=== PATIENT | male | born 1950 | race Caucasian/White ===

== ENCOUNTER 2016-12-15 14:20 | Inpatient (IN) | payer OTHER, MEDICARE ==
[~2016-12-15] VITALS: Ht 175.3 cm; Wt 85.8 kg
[2016-12-15] MEDS ORDERED: PANTOPRAZOLE SO40 M1 PO (15:13)
[2016-12-15] MEDS ORDERED: TACROLIMUS1 M1 PO (15:13)
[2016-12-15] MEDS ORDERED: CRESTOR10 M1 PO (15:14)
[2016-12-15] MEDS ORDERED: LOSARTAN POTASS50 M1 PO (15:14)
[2016-12-15] MEDS ORDERED: ASPIRIN81 M4 PO (15:15)
[2016-12-15] MEDS ORDERED: CLONAZEPAM0.5 M2 PO (15:15)
[2016-12-15] MEDS ORDERED: DAILY MULTIPLE1 EACH PO (15:16)
[2016-12-15] MEDS ORDERED: FISH OIL 1,0001 EACH PO (15:16)
[2016-12-15] MEDS ORDERED: HYDROXYZINE HCL25 M2 PO (15:18)
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
[2016-12-15 16:22] LABS: ABSOLUTE BASOPHIL COUNT 0 /CUMM (0.0-0.2); ABSOLUTE EOSINOPHIL COUNT 0.1 /CUMM (0.0-0.7); ABSOLUTE GRANULOCYTE CT 4.7 /CUMM (1.4-6.5); ABSOLUTE LYMPH COUNT 1.4 /CUMM (1.2-3.4); ABSOLUTE MONOCYTE COUNT 0.4 /CUMM (0.10-0.60); BASOPHIL % 0.5 % (0.0-2.0); EOSINOPHIL % 1.1 % (0-5); GRANULOCYTE % 70.5 % (42.2-75.2); HEMATOCRIT 40.1 % (42-52); MEAN CORPUSCULAR HGB 31.2 PG (27.0-31.0); MEAN CORPUSCULAR VOLUME 91.9 FL (80.0-94.0); MEAN PLATELET VOLUME 7.6 FL (7.4-10.4); PLATELET COUNT 159 /CUMM (130-400); RED BLOOD CELL CT 4.36 /CUMM (4.70-6.10); WHITE BLOOD CELL COUNT 6.7 /CUMM (4.8-10.8)
--- NOTE | 2016-12-15 18:12 | ED PSYCH CRISIS CONSULTATION ---
See Addendum Crisis Consult Basic Assessment Date of Consult: 12/15/16 Responsible Person/Accompanied By: self Insurance Authorization: Insurance #1: Insurance name: MEDICARE A Phone number: Policy number: [id number] Group number: Authorization number: ED Provider: Patient's ED Provider: CYNTHIA CARD Primary Care Physician: Patient's PCP: NIKOLAS JARAMILLO MD PCP's Chief Complaint: Psychiatric Related Complaint Patient's Quote: "I am very depressed." Present Illness: The pt is a 66 yo male BIBA on a PEER for SI and HI after calling 211 earlier today. The pt reports his only stressor is increasing discord with his of 40 years. The pt reports he cannot tolerate arguments with his anymore and stated I am going to snap so I called 211. The pt stated he planned to "chop up" his today when she returned home from work and put her in a suitcase or in a vann. The pt stated he then planned to hang himself to avoid longterm. The pt stated he does not think he can stop himself from following through on this plan. During this assessment the pt presented alert, tearful, oriented, calm and cooperative. The pts speech was goal directed and the pt made appropriate eye contact. The pt denies AH, VH and paranoia. The pt stated his sleep is increasingly poor, the pt denies any problems with appetite. The pt denies any drug and alcohol use and his toxicology screen is negative. The pt reports 1 past attempt of suicide approximately 13 years ago. The pt stated he hung a rope in his garage but could not follow through with hanging himself due to his children. The pt stated he has 1 past psychiatric hospitalization approximately 4-5 years ago due to depression with SI. The pt reports he saw a psychiatrist several times in approximately 2002 but refused medication due to being afraid of side effects. The pt reports his has a long history of alcoholism in addition to abusing Klonopin and other drugs. The pt stated his argues with him daily and is aggressive and destructive. Crisis spoke by phone with the pts daughter Lucinda Miranda ([phone]). Ms. Miranda reported the pt called her earlier today stating he feels like killing his and then himself. Ms. Miranda stated she is afraid the pt will follow through on harming his and himself. Ms. Miranda stated her parents have a long history of discord centering around the mothers alcoholism. Ms. Miranda stated the stressors at home remain the same due to the pts continuing to refuse rehab. Ms. Miranda stated the pt is pleasant and easy going except her parents are hostile towards each other. While in the ED, after Crisis met with the pt, he was moved from the hallway to a room. The pt began yelling and swearing at staff about being confined. The pt was moved back to the franks and became calm again. The pt reports he is angry his is not forced to enter treatment. Pt's presentation discussed with Dr. Gaytan, plan is for a PEC and inpatient hospitalization. Pt and daughter are in agreement with this plan. Patient's Address: [address] [place] [address] Other Phone Number: Who Do You Live With? Significant Other Family/Informants Interviewed: pt's daughter Allergies - Coded Allergies: No Known Allergies (12/15/16) Current Medications - Scheduled Medications Aspirin (Aspirin*) 81 MG TAB.CHEW 1 TAB PO DAILY HEART HEALTH (Reported) Entered as Reported by STEPH TRAN on 12/15/16 1515 Clonazepam 0.5 MG TABLET 1 TAB PO BID ANXIETY #180 (Reported) Entered as Reported by STEPH TRAN on 12/15/16 1515 Losartan Potassium 50 MG TABLET 1 TAB PO DAILY HEART #30 (Reported) Entered as Reported by STEPH TRAN on 12/15/16 1514 Multivitamin (Daily Multiple Vitamin) 1 EACH TABLET 1 TAB PO DAILY SUPPLEMENT (Reported) Entered as Reported by STEPH TRAN on 12/15/16 1516 Pantoprazole Sodium 40 MG TABLET.DR 1 TAB PO DAILY GI #90 (Reported) Entered as Reported by STEPH TRAN on 12/15/16 1513 Rosuvastatin Calcium (Crestor) 10 MG TABLET 1 TAB PO DAILY CHOLESTEROL #90 ( Reported) Entered as Reported by STEPH TRAN on 12/15/16 1514 Tacrolimus 1 MG CAPSULE 1 CAP PO BID IMMUNE MEDICATION #180 (Reported) Entered as Reported by STEPH TRAN on 12/15/16 1513 Scheduled PRN Medications Hydroxyzine HCl 25 MG TABLET 1 TAB PO BID PRN ITCHING #30 (Reported) Entered as Reported by STEPH TRAN on 12/15/16 1518 Miscellaneous Medications [place]-3 Fatty Acids/Fish Oil (Fish Oil 1,000 MG Capsule) 340 MG-1,000 MG CAPSULE SUPPLEMENT (Reported) Entered as Reported by STEPH TRAN on 12/15/16 1516 Laboratory Results: Laboratory Tests 12/15/16 1606: Anion Gap 11, Estimated GFR > 60, BUN/Creatinine Ratio 32.5 H, Glucose 115 H, Calcium 9.2, Total Bilirubin 1.1, AST 98 H, ALT 85 H, Alkaline Phosphatase 53, Total Protein 7.3, Albumin 4.0, Globulin 3.3, Albumin/Globulin Ratio 1.2, CBC w Diff NO MAN DIFF REQ, RBC 4.36 L, MCV 91.9, MCH 31.2 H, RDW 13.0, MPV 7.6, Gran % 70.5, Lymphocytes % 21.6, Monocytes % 6.3, Eosinophils % 1.1, Basophils % 0.5, Absolute Granulocytes 4.7, Absolute Lymphocytes 1.4, Absolute Monocytes 0.4 , Absolute Eosinophils 0.1, Absolute Basophils 0, PUBS MCHC 34.0, Serum Alcohol < 10.0 12/15/16 1530: Urine Opiates Screen < 100.00, Methadone Screen < 40, Barbiturate Screen < 60, Ur Phencyclidine Scrn < 6.00, Amphetamines Screen < 100, U Benzodiazepines Scrn < 85, Urine Cocaine Screen < 50, Urine Cannabis Screen < 5.00 Past History Past Medical History Cardiovascular: hypertension Gastrointestinal: HEP C Hepatic: LIVER TRANSPLANT Psychiatric: anxiety, depression Endocrine: diabetes Past Surgical History Surgical History: LIVER TRANSPLANT Psychosocial History Strengths/Capabilities: Long work history until liver transplant, supportive relationship with daughter Physical Limitations (Interventions): disability related to liver transplant in 2003 Psychiatric Treatment History Psych Treatment Psychiatric Treatment Yes Inpatient Treatment Yes Outpatient Treatment Yes Location of Treatment inpt- [facility], outpt psychiatrist (pt does not know name) Reason for Treatment depression with SI Dates of Treatment inpt approx 4-5 yrs ago, outpt approx 2002 Response to Treatment limited due to ongoing discord with Diagnosis by History: depression Substance Use/Abuse History Drug Use/Abuse Substances Used/Abused No Substance Abuse Treatment Substance Abuse Treatment Past Substance Abuse [place] No Current Mental Status Mental Status Orientation: Person, Place, Situation Affect: Anxious (labile) Speech: WNL Neuro-vegetative: Sleep Disturbance Appearance Appearance- Dress/Hygiene: appropriate Behaviors Thought Process: WNL Thought Content: WNL Memory: WNL Insight: Poor SI/HI Risk Assessment Past Suicidal Ideation/Attempts Yes Current Suicidal Ideation/Att Yes Past Homicidal Ideation/Att: No Current Homicidal Ideation/Attempts Yes Degree of Intent: Plan, States Intent Danger To: Others, Self Risk Factors: access to lethal means, high anxiety/distress, history of suicide atmpts, SA/MH hospitalized, lack of outcome concern, male, limited support Lethality Ratin PTSD Checklist PTSD Done? patient declined ED Management Sitter: Yes Restraints: No DSM5/PS Stressors/Medical Prob Diagnosis' (DSM 5, Stressors, Medical): F32.9 Unspecified Depressive Disorder Z63.0 Relationship Distress with Spouse Current GAF: 26 Departure Disposition Psych Medical Clearance Date: 12/15/16 Medically Cleared at: 1700 Time Started: 1700 Time Ended: 1730 Psychiatrist Consulted: Dr. Gaytan Date Disposition Established: 12/15/16 Time Disposition Established: 1844 Plan for Disposition - Modality: Inpatient Psychiatry Facility: Bed Search Rationale for Disposition: Pt is a risk to self and others. Type of IP Admission: PEC (Pt is in agreement with inpt.) Referrals NIKOLAS JARAMILLO MD (PCP/Family)
--- NOTE | 2016-12-16 14:43 | ED PSYCHIATRIST/APRN CONSULT ---
Psychiatrist/[employer] ED Consult Assessment and Plan: Pt seen today as f/u. Pt notes that he is very stressed about the situation with as "she is trying to kill herself." He notes worsening depression and anxiety as well as SI or HI one day ago because "there is nothing I can do." Feeling slightly better today though depressed. MSE As stated age, cooperative though guarded, good eye contact, nl r/r/v/p of speech, mood "I'm Ok" affect very tearful, irritable, labile, congruent, appropriate, linear and goal-directed thought process, denies SI or HI currently , denies AVHs, I/J: poor A/P: Pt with hx of MDD who presented with SI and HI to kill one day ago as ongoing issues around substance abuse in the . Given severely of sx and plan to kill , pt would benefit from acute inpatient stablization at this time. On 12/15/2016 Awaiting inpatient psych admission Bed search underway
--- NOTE | 2016-12-16 19:17 | ED PSY CRISIS COLLATERAL NOTE ---
Collateral Note Collateral Note Family/Inform/[facility] Contacts: front office associate spoke to Lucinda Celeste, pt's daughter . Lucinda states her father was admitted twice at [facility] (past 4 years) for suicidal ideations and there are periods in his life where he has been violent and "loses it". According to Lucinda, pt has been saying "wild, irrational and ignorant stuff to my mother". "He told her he wants to kill her". "Yes my father needs to be admitted for inpatient psychiatric treatment". Lucinda is encouraging us to give the pt his anti-rejection medications need because of his liver transplant and his medications for his diabetes,"check blood sugar because when his blood sugar is off he loses it" . Lucinda also confirmed that her mother is an alcoholic and abuses prescription medications. As of 7pm eddi Lucinda had no idea of her mother's whereabout. "I've been calling the house and I can't reach her and don't know where she it at this time".
--- NOTE | 2016-12-17 13:36 | ED PSYCHIATRIST/APRN CONSULT ---
Psychiatrist/[employer] ED Consult Assessment and Plan: Pt seen as f/u today. Pt notes that is getting treatment now. He feels that all problems solved. When noted to pt that he would not be discharged he stated, "If I'm crazy, I'm crazy and there is nothing that you can do. If I want to go kill someone when I leave here, I will!!" Unable to be redirected. Pt adamant that will not relapse but if does, "well...we don't know what will happen then!" MSE As stated age, cooperative though guarded, good eye contact, nl r/r/v/p of speech, mood "I'm fine now" affect very tearful, extremely irritable, labile, congruent, appropriate, linear and goal-directed thought process, denies SI or HI currently, denies AVHs, I/J: poor A/P: Pt with hx of MDD who presented with SI and HI to kill as ongoing issues around substance abuse in the . Although she is now seeking treatment , pt still risk to her and himself as she may relapse. Pt was agitated even considering this possibility. Given severity of sx and plan to kill , pt would benefit from acute inpatient stablization at this time. PEC written Awaiting bed for acute psychiatric stablization
--- NOTE | 2016-12-18 11:52 | IP CRISIS DIAG ASSESS PSYCH ---
Diagnostic Assessment Basic Assessment Insurance Authorization: Insurance #1: Insurance name: MEDICARE A Phone number: Policy number: [id number] Group number: Authorization number: Patient's listed [facility] account was terminated when he was at his last address in [place], [place], per Caity at [facility] advocate unit, [phone]. 12/18/16 1240. Primary Care Physician: Patient's PCP: NIKOLAS JARAMILLO MD PCP's Patient's Quote: "I am very depressed." Present Illness: From the initial Crisis consult of 12/15/16: The pt is a 66 yo male BIBA on a PEER for SI and HI after calling 211 earlier today. The pt reports his only stressor is increasing discord with his of 40 years. The pt reports he cannot tolerate arguments with his anymore and stated I am going to snap so I called 211. The pt stated he planned to "chop up" his today when she returned home from work and put her in a suitcase or in a vann. The pt stated he then planned to hang himself to avoid intermediate. The pt stated he does not think he can stop himself from following through on this plan. During this assessment the pt presented alert, tearful, oriented, calm and cooperative. The pts speech was goal directed and the pt made appropriate eye contact. The pt denies AH, VH and paranoia. The pt stated his sleep is increasingly poor, the pt denies any problems with appetite. The pt denies any drug and alcohol use and his toxicology screen is negative. The pt reports 1 past attempt of suicide approximately 13 years ago. The pt stated he hung a rope in his garage but could not follow through with hanging himself due to his children. The pt stated he has 1 past psychiatric hospitalization approximately 4-5 years ago due to depression with SI. The pt reports he saw a psychiatrist several times in approximately 2002 but refused medication due to being afraid of side effects. The pt reports his has a long history of alcoholism in addition to abusing Klonopin and other drugs. The pt stated his argues with him daily and is aggressive and destructive. Crisis spoke by phone with the pts daughter Lucinda Miranda ([phone]). Ms. Miranda reported the pt called her earlier today stating he feels like killing his and then himself. Ms. Miranda stated she is afraid the pt will follow through on harming his and himself. Ms. Miranda stated her parents have a long history of discord centering around the mothers alcoholism. Ms. Miranda stated the stressors at home remain the same due to the pts continuing to refuse rehab. Ms. Miranda stated the pt is pleasant and easy going except her parents are hostile towards each other. While in the ED, after Crisis met with the pt, he was moved from the hallway to a room. The pt began yelling and swearing at staff about being confined. The pt was moved back to the franks and became calm again. The pt reports he is angry his is not forced to enter treatment. Pt's presentation discussed with Dr. Gaytan, plan is for a PEC and inpatient hospitalization. Pt and daughter are in agreement with this plan. Patient's Address: [address] [place] [address] Other Phone Number: Formerly in [place], [place] until 2 years ago. Who Do You Live With? Spouse Feel Safe Where You Live? Yes Feel Safe in Your Relationship Yes Marital Status: Do You Have Children? Yes Ages? 3 children, 5 grandchildr Primary Language? Chinese Language(s) Spoken At Home: Malian, Chinese Family/Informants Interviewed: pt's daughter (See collateral note from ) Allergies - Coded Allergies: No Known Allergies (12/15/16) Current Medications - Scheduled Medications Aspirin (Aspirin*) 81 MG TAB.CHEW 1 TAB PO DAILY HEART HEALTH (Reported) Entered as Reported by STEPH TRAN on 12/15/16 1515 Clonazepam 0.5 MG TABLET 1 TAB PO BID ANXIETY #180 (Reported) Entered as Reported by STEPH TRAN on 12/15/16 1515 Losartan Potassium 50 MG TABLET 1 TAB PO DAILY HEART #30 (Reported) Entered as Reported by STEPH TRAN on 12/15/16 1514 Multivitamin (Daily Multiple Vitamin) 1 EACH TABLET 1 TAB PO DAILY SUPPLEMENT (Reported) Entered as Reported by STEPH TRAN on 12/15/16 1516 Pantoprazole Sodium 40 MG TABLET.DR 1 TAB PO DAILY GI #90 (Reported) Entered as Reported by STEPH TRAN on 12/15/16 1513 Rosuvastatin Calcium (Crestor) 10 MG TABLET 1 TAB PO DAILY CHOLESTEROL #90 ( Reported) Entered as Reported by STEPH TRAN on 12/15/16 1514 Tacrolimus 1 MG CAPSULE 1 CAP PO BID IMMUNE MEDICATION #180 (Reported) Entered as Reported by STEPH TRAN on 12/15/16 1513 Scheduled PRN Medications Hydroxyzine HCl 25 MG TABLET 1 TAB PO BID PRN ITCHING #30 (Reported) Entered as Reported by STEPH TRAN on 12/15/16 1518 Miscellaneous Medications [place]-3 Fatty Acids/Fish Oil (Fish Oil 1,000 MG Capsule) 340 MG-1,000 MG CAPSULE SUPPLEMENT (Reported) Entered as Reported by STEPH TRAN on 12/15/16 1516 Lab Results: Laboratory Tests 12/15 12/15 1606 1530 Chemistry Sodium (137 - 145 mmol/L) 136 L Potassium (3.5 - 5.1 mmol/L) 4.0 Chloride (98 - 107 mmol/L) 104 Carbon Dioxide (22 - 30 mmol/L) 22 Anion Gap (5 - 16) 11 BUN (9 - 20 mg/dL) 26 H Creatinine (0.7 - 1.2 mg/dL) 0.8 Estimated GFR (>60 ml/min) > 60 BUN/Creatinine Ratio (7 - 25 %) 32.5 H Glucose (65 - 99 mg/dL) 115 H Calcium (8.4 - 10.2 mg/dL) 9.2 Total Bilirubin (0.2 - 1.3 mg/dL) 1.1 AST (17 - 59 U/L) 98 H ALT (21 - 72 U/L) 85 H Alkaline Phosphatase (< 127 U/L) 53 Total Protein (6.3 - 8.2 g/dL) 7.3 Albumin (3.5 - 5.0 g/dL) 4.0 Globulin (1.9 - 4.2 gm/dL) 3.3 Albumin/Globulin Ratio (1.1 - 2.2 %) 1.2 Hematology CBC w Diff NO MAN DIFF REQ WBC (4.8 - 10.8 /CUMM) 6.7 RBC (4.70 - 6.10 /CUMM) 4.36 L Hgb (14.0 - 18.0 G/DL) 13.6 L Hct (42 - 52 %) 40.1 L MCV (80.0 - 94.0 FL) 91.9 MCH (27.0 - 31.0 PG) 31.2 H RDW (11.5 - 14.5 %) 13.0 Plt Count (130 - 400 /CUMM) 159 MPV (7.4 - 10.4 FL) 7.6 Gran % (42.2 - 75.2 %) 70.5 Lymphocytes % (20.5 - 51.1 %) 21.6 Monocytes % (1.7 - 9.3 %) 6.3 Eosinophils % (0 - 5 %) 1.1 Basophils % (0.0 - 2.0 %) 0.5 Absolute Granulocytes (1.4 - 6.5 /CUMM) 4.7 Absolute Lymphocytes (1.2 - 3.4 /CUMM) 1.4 Absolute Monocytes (0.10 - 0.60 /CUMM) 0.4 Absolute Eosinophils (0.0 - 0.7 /CUMM) 0.1 Absolute Basophils (0.0 - 0.2 /CUMM) 0 PUBS MCHC (33.0 - 37.0 G/DL) 34.0 Toxicology Urine Opiates Screen (>2000 NG/ML) < 100.00 Methadone Screen (>300 NG/ML) < 40 Barbiturate Screen (>200 NG/ML) < 60 Ur Phencyclidine Scrn (>25 NG/ML) < 6.00 Amphetamines Screen (>1000 NG/ML) < 100 U Benzodiazepines Scrn (>200 NG/ML) < 85 Urine Cocaine Screen (>300 NG/ML) < 50 Urine Cannabis Screen (>50 NG/ML) < 5.00 Serum Alcohol (<10 MG/DL) < 10.0 Toxicology Screen Completed? Yes Results: negative Past History Past Medical History Medical History: Diabetes, Hepatitis, Hypertension Past Surgical History Surgical History LIVER TRANSPLANT Abuse/Trauma History Trauma History/Current Trauma: Denies Legal History Current Legal Status: none Have you ever been arrested? No Psychosocial History Strengths/Capabilities: Long work history until liver transplant, supportive relationship with daughter Physical Limitations (Interventions): disability related to liver transplant in 2003 Psychiatric Treatment History Psych Treatment Psychiatric Treatment Yes Inpatient Treatment Yes Outpatient Treatment Yes Location of Treatment inpt- [facility], outpt psychiatrist (pt does not know name) Reason for Treatment depression with SI Dates of Treatment inpt approx 4-5 yrs ago, outpt approx 2002 Response to Treatment limited due to ongoing discord with Diagnosis by History: depression Risk Factors: access to lethal means, high anxiety/distress, history of suicide atmpts, SA/MH hospitalized, lack of outcome concern, male, limited support Substance Use/Abuse History Drug Use/Abuse minimum 12mo Hx Substances Used/Abused No Substance Abuse Treatment Substance Abuse Treatment Past Substance Abuse [place] No Education History Highest Level of Education: Eighth grade, then ?trade school Preferred Learning Style: experiential Current Mental Status Mental Status Orientation: Person, Place, Situation Affect: Anxious (labile) Speech: WNL Neuro-vegetative: Sleep Disturbance Appearance Appearance- Dress/Hygiene: appropriate Behaviors Thought Process: WNL Thought Content: WNL Memory: WNL Insight: Poor SI/HI Risk Assessment - Minimum 6mo History- Past Suicidal Ideation/Attempts Yes Current Suicidal Ideation/Att No Past Homicidal Ideation/Att: Yes Current Homicidal Ideation/Attempts No Degree of Intent: Plan, States Intent Danger To: Others, Self Risk Factors: access to lethal means, high anxiety/distress, history of suicide atmpts, SA/MH hospitalized, lack of outcome concern, male, limited support Lethality Ratin Needs/Init [place] Plan/Goals: TBD AUDIT-C Questionnaire: AUDIT-C Questionnaire: Response Value ETOH use in the past year Never 0 # drinks typical/day Doesn't Drink 0 6 or > drinks per occasion Never 0 Total 0 DSM5/PS Stressors/Medical Prob Diagnosis' (DSM 5, Stressors, Medical): F32.9 Unspecified Depressive Disorder Z63.0 Relationship Distress with Spouse Current GAF: 26
--- NOTE | 2016-12-18 14:37 | SOCIAL WORKER SOCIAL HX PSYCH ---
Social History Basic Assessment Insurance Authorization: Insurance #1: Insurance name: MEDICARE A Phone number: Policy number: [id number] Group number: Authorization number: Curr Source of Income/Entitlements: SSDI Primary Care Physician: Patient's PCP: NIKOLAS JARAMILLO MD PCP's Present Problem: The pt is a 66 yo male BIBA on a PEER for SI and HI after calling 211 earlier today. The pt reports his only stressor is increasing discord with his of 40 years. The pt reports he cannot tolerate arguments with his anymore and stated I am going to snap so I called 211. The pt stated he planned to "chop up" his today when she returned home from work and put her in a suitcase or in a vann. The pt stated he then planned to hang himself to avoid usp. The pt stated he does not think he can stop himself from following through on this plan. During this assessment the pt presented alert, tearful, oriented, calm and cooperative. The pts speech was goal directed and the pt made appropriate eye contact. The pt denies AH, VH and paranoia. The pt stated his sleep is increasingly poor, the pt denies any problems with appetite. The pt denies any drug and alcohol use and his toxicology screen is negative. The pt reports 1 past attempt of suicide approximately 13 years ago. The pt stated he hung a rope in his garage but could not follow through with hanging himself due to his children. The pt stated he has 1 past psychiatric hospitalization approximately 4-5 years ago due to depression with SI. The pt reports he saw a psychiatrist several times in approximately 2002 but refused medication due to being afraid of side effects. The pt reports his has a long history of alcoholism in addition to abusing Klonopin and other drugs. The pt stated his argues with him daily and is aggressive and destructive. Crisis spoke by phone with the pts daughter Lucinda Miranda ([phone]). Ms. Miranda reported the pt called her earlier today stating he feels like killing his and then himself. Ms. Miranda stated she is afraid the pt will follow through on harming his and himself. Ms. Miranda stated her parents have a long history of discord centering around the mothers alcoholism. Ms. Miranda stated the stressors at home remain the same due to the pts continuing to refuse rehab. Ms. Miranda stated the pt is pleasant and easy going except her parents are hostile towards each other. While in the ED, after Crisis met with the pt, he was moved from the hallway to a room. The pt began yelling and swearing at staff about being confined. The pt was moved back to the franks and became calm again. The pt reports he is angry his is not forced to enter treatment. Pt's presentation discussed with Dr. Gaytan, plan is for a PEC and inpatient hospitalization. Pt and daughter are in agreement with this plan. The patient is calm and cooperative on 12/18/16. He reports that his daughter has told him that his is entering treatment for drug and alcohol abuse. Primary Language? Citizen Of [place] Language(s) Spoken At Home: Marshallese, Citizen Of [place] Living Situation Rents or Owns Home? owns Feel Safe Where You Are Living Yes Feel Safe in Relationships? Yes Allergies - Coded Allergies: No Known Allergies (12/15/16) Current Medications - Scheduled Medications Aspirin (Aspirin*) 81 MG TAB.CHEW 1 TAB PO DAILY HEART HEALTH (Reported) Entered as Reported by STEPH TRAN on 12/15/16 1515 Clonazepam 0.5 MG TABLET 1 TAB PO BID ANXIETY #180 (Reported) Entered as Reported by STEPH TRAN on 12/15/16 1515 Losartan Potassium 50 MG TABLET 1 TAB PO DAILY HEART #30 (Reported) Entered as Reported by STEPH TRAN on 12/15/16 1514 Multivitamin (Daily Multiple Vitamin) 1 EACH TABLET 1 TAB PO DAILY SUPPLEMENT (Reported) Entered as Reported by STEPH TRAN on 12/15/16 1516 Pantoprazole Sodium 40 MG TABLET.DR 1 TAB PO DAILY GI #90 (Reported) Entered as Reported by STEPH TRAN on 12/15/16 1513 Rosuvastatin Calcium (Crestor) 10 MG TABLET 1 TAB PO DAILY CHOLESTEROL #90 ( Reported) Entered as Reported by STEPH TRAN on 12/15/16 1514 Tacrolimus 1 MG CAPSULE 1 CAP PO BID IMMUNE MEDICATION #180 (Reported) Entered as Reported by STEPH TRAN on 12/15/16 1513 Scheduled PRN Medications Hydroxyzine HCl 25 MG TABLET 1 TAB PO BID PRN ITCHING #30 (Reported) Entered as Reported by STEPH TRAN on 12/15/16 1518 Miscellaneous Medications [place]-3 Fatty Acids/Fish Oil (Fish Oil 1,000 MG Capsule) 340 MG-1,000 MG CAPSULE SUPPLEMENT (Reported) Entered as Reported by STEPH TRAN on 12/15/16 1516 Past History Past Medical History Cardiovascular: hypertension Gastrointestinal: HEP C Hepatic: LIVER TRANSPLANT Psychiatric: anxiety, depression Endocrine: diabetes Past Surgical History Surgical History: LIVER TRANSPLANT /Family History Place/Country of Origin: [place] Childhood Family Constellation: Mother when patient 5 y.o.; father was never present. Raised by an aunt and uncle. He had three siblings. Primary Childhood Caretakers: aunt, uncle Family Life During Childhood: "Treated like a slave." Not good. DCF Involvement? No Relationship w/Mother: NA Relationship w/Father: NA Any Sibling(s)? Yes Sibling's Gender(s)/Age(s): female Sibling 1:, male Sibling 2:, female Sibling 3: Relationship w/Sibling(s): Good. Older sister 78 lives in [place]; brother 62 lives in [place]; other sister 60 lives in [place], but visits often. Relationship w/Friends: Good. "Many have because they made bad choices." Family Psych/Sub Abuse/Add Hx: Patient's son has bipolar disorder, not currently in treatment. Abuse/Trauma History Trauma History/Current Trauma: Denies Legal History Legal Guardian/Address/Phone: NA Current Legal Status: none Have you ever been arrested No Hx of Adult Legal Charges? No Psychosocial History Primary Support System: Strengths/Capabilities: Long work history until liver transplant, supportive relationship with daughter Weaknesses: Inability to deal with spouse's alcohol and substance abuse. Physical Limitations (Interventions): disability related to liver transplant in 2003 IADLs appear unhindered. Last Physical: Two weeks ago History of Seizures? No History of Blackouts? No ADL Limitations: None disclosed or observed [address]/Social/Peer Relations Good Meaningful Activities: Builds and shows two cars; likes to watch wrestling on TV. Childhood Gnosticism: Presbyterian Current Episcopalian Affiliation: Presbyterian Is Spirituality Important to You? Yes Patient's Ethnicity: Austrian Cultural/Ethnic Issues: None known at this time Are There Developmental Issues? No Psychiatric Treatment History Psych Treatment Inpatient Treatment Yes Outpatient Treatment Yes Location of Treatment inpt- [facility], outpt psychiatrist (pt does not know name) Reason for Treatment depression with SI Dates of Treatment inpt approx 4-5 yrs ago, outpt approx 2002 Response to Treatment limited due to ongoing discord with Current Rcis: PCP in [place] Treatment of Prior Episodes: [place] with Claritza by PCP Diagnosis: depression Risk Factors: access to lethal means, high anxiety/distress, history of suicide atmpts, SA/MH hospitalized, lack of outcome concern, male, limited support Substance Use/Abuse History Drug Use/Abuse Substance Used/Abused No History Substance Abuse Treatment Substance Abuse Treatment Inpatient Treatment No (Denies) Sexual History Sexually Active Yes # of partners 1 Sexual Orientation Heterosexual Sexual Concerns: None Education History Highest Level of Education: Eighth grade, then ?trade school Highest Grade Completed: 8 Preferred Learning Style: experiential HX of Learning Difficulties: None reported Special Communication Needs: None reported Employment History Employment Disability Not in Labor Force: Disabled 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 of Jobs in Last 5 Years: 0 Attendance: Above average Performance: Exemplary History Have You Been in The ? Yes If Yes, Explain: [employer] in [place], [place]. Honorably discharged, per patient. Type of Discharge: Honorable Current Mental Status Mental Status Orientation: Person, Place, Situation Affect: Anxious (labile) Speech: WNL Neuro-vegetative: Sleep Disturbance Appearance Appearance- Dress/Hygiene: appropriate Behaviors Thought Process: WNL Thought Content: WNL Memory: WNL Insight: Poor SI/HI Risk Assessment Past Suicidal Ideation/Attempts Yes Current Suicidal Ideation/Att No Past Homicidal Ideation/Att: Yes Current Homicidal Ideation/Attempts No Degree of Intent: Plan, States Intent Danger To: Others, Self Lethality Ratin - Conclusion and Recommendations for treatment - and discharge planning
[2016-12-18 16:07] VITALS: BP 149/81
[2016-12-18] MEDS ORDERED: LANTUS SOL100 UNIT/1 SQ (19:02)
[2016-12-18 19:58] VITALS: BP 146/61
[2016-12-19 08:02] VITALS: BP 129/76
--- NOTE | 2016-12-19 08:19 | Cons- Endocrinology ---
General Information and HPI Consulting Request Date of Consult: 12/19/16 Requested By: Harish Knott MD Reason for Consult: Uncontrolled diabetes Source of Information: patient, old records Exam Limitations: no limitations History of Present Illness: This 66-year-old male who moved to [facility] more than a year ago has a history of diabetes mellitus type 2 which he states occurred or began after a liver transplant. This was about 13 years ago. He receives a transplant at the [facility]. States that transplant is doing well. He is no longer on prednisone. The patient manages his diabetes with 40 units of Lantus once a day taken in the morning. Sometimes if his sugar was low he does not take the Lantus. His sugar in the morning is often below 120. Later in the day he could be greater than 200. He does not take any fast acting insulin before meals. He has never been on pills for diabetes. He denies any diabetic eye problems or kidney problems. He does have a past history of hypertension and also hypercholesterolemia. Allergies/Medications Allergies: Coded Allergies: No Known Allergies (12/15/16) Home Med List: Aspirin (Aspirin*) 81 MG TAB.CHEW 1 TAB PO DAILY HEART HEALTH (Reported) Clonazepam (Klonopin) 0.5 MG TABLET 0.5 MG PO 2000 anxiety at bedtime Insulin Detemir (Levemir) 100 UNIT/ML VIAL 40 UNITS SC QPM control blood glucose Losartan Potassium 50 MG TABLET 1 TAB PO DAILY HEART (Reported) Multivitamin (Daily Multiple Vitamin) 1 EACH TABLET 1 TAB PO DAILY SUPPLEMENT (Reported) [place]-3 Fatty Acids/Fish Oil (Fish Oil 1,000 MG Capsule) 340 MG-1,000 MG CAPSULE SUPPLEMENT (Reported) Pantoprazole Sodium 40 MG TABLET.DR 1 TAB PO DAILY GI (Reported) Rosuvastatin Calcium (Crestor) 10 MG TABLET 1 TAB PO DAILY CHOLESTEROL ( Reported) Tacrolimus 1 MG CAPSULE 1 CAP PO BID IMMUNE MEDICATION (Reported) Review of Systems Review of Systems Constitutional: Denies: chills, fever. Cardiovascular: Denies: chest pain. Respiratory: Denies: short of breath. GI: Denies: abdominal pain, nausea, vomiting. Genitourinary: Denies: frequency. Skin: Reports: no symptoms. Neurological/Psychological: Reports: paresthesia. Past History Travel History Traveled to [place] past 21 day No Medical History Neurological: NONE EENT: NONE Cardiovascular: hypertension, hyperlipidemia Respiratory: NONE Gastrointestinal: HEP C ? GERD Hepatic: hepatitis C, LIVER TRANSPLANT Renal: NONE Musculoskeletal: LEFT SHOULDER ARTHRITIS Psychiatric: anxiety, depression Endocrine: diabetes Blood Disorders: NONE Cancer(s): NONE CONTRACT CLERK AUTOMOBILE/Reproductive: NONE Surgical History Surgical History: LIVER TRANSPLANT Psychosocial History Where Do You Live? 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 [employer] Exam & Diagnostic Data Last 24 Hrs of Vital Signs/I&O Vital Signs Date Time Temp Pulse Resp B/P B/P Pulse O2 O2 Flow FiO2 Mean Ox Delivery Rate 12/19 801 97.5 69 129/76 / 1958 98.6 88 146/61 05/ 1607 97.9 75 149/81 05/ 1204 96.1 65 18 120/67 97 Room Air 12/18 0853 142/70 / 0947 96.7 60 18 128/76 Intake & Output 12/19 1600 12/20 0700 12/19 0000 Intake Total Output Total Balance Patient 189 lb Weight Vital Signs Date Time Temp Pulse Resp B/P B/P Pulse O2 O2 Flow FiO2 Mean Ox Delivery Rate 12/20 0702 97.5 69 129/76 / 1958 98.6 88 146/61 / 1607 97.9 75 149/81 05/ 1204 96.1 65 18 120/67 97 Room Air 12/18 0953 142/70 / 0947 96.7 60 18 128/76 Intake & Output 12/19 1600 12/19 0800 05/ 0000 Intake Total Output Total Balance Patient 189 lb Weight Physical Exam General Appearance: alert, awake, comfortable Head: normal appearance Eyes: Bilateral: normal appearance. Neck: normal inspection Respiratory: normal breath sounds, lungs clear Cardiovascular: regular rate/rhythm Gastrointestinal: normal bowel sounds, soft Extremities: normal inspection Assessment/Plan Assessment/Plan Suggest continue the present insulin for now. The patient's renal function is normal and he has not been on oral agents. Metformin and other medications may be a consideration long as they do not interact with his antirejection drugs that caused him to become dehydrated. Continue to monitor her sugars. Consult Acknowledgment - Thank you for your consult request.
--- NOTE | 2016-12-19 10:51 | SOCIAL WORKER TX PLAN PSYCH ---
Treatment Plan - Please Document: - Evidence that there is ongoing collaboration between - the patient and the interdisciplinary team, - including the patient's active participation and - responsibility for engaging in the treatment regimen, - and that the treatment plan is individualized and - relevant to the patient's conditions. - Treatment plan should reflect documentation indicating - that all active therapeutic efforts are included. Strengths/Capabilities: Long work history until liver transplant, supportive relationship with daughter Physical Limitations (Interventions): disability related to liver transplant in 2003 IADLs appear unhindered. Patient Identified Trmt Goals: To feel better. Discharge Plan: [facility] to [facility] Problem/Goals #1 Problem #1: Suicidal/Homicidal ideation Goal (Short Term): Maintain safety on unit (15min checks), verbalize feelings to staff, idenitfy 1- 2 triggers to SI, and HI. Identify 1-2 coping skills (attend groups and be visible in millieu). Goal (Longterm): Report no SI,HI, no intent or plan to harm self or others. mood stable, attend after-care treatment. Interventions: Individual therapy daily, groups daily (4), activities, meeting with MACHINE CEMENTER or MD daily regarding medication management, Family meetings as needed. Nursing 05/03 care, medical care. Modalities: CBT, DBT, OR modalities, accupuncture, activities, and MH groups, DSM5/PS Stressors/Medical Prob Diagnosis' (DSM 5, Stressors, Medical): F32.9 Unspecified Depressive Disorder Z63.0 Relationship Distress with Spouse Current GAF: 26 Treatment Team - Responsibilities of members of the treatment team include: - Medication Management- MD or MACHINE CEMENTER - Medication Administration and Monitoring- Nurse - Group Therapy- Occupational Therapist - 1:1 Therapy,Disch Planning,family involvement-Technical Support Engineer
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
[2016-12-19 12:40] VITALS: BP 144/72
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
--- NOTE | 2016-12-19 16:11 | CPS MD/APRN INITIAL ASSE PSYCH ---
Psychiatric Admission Receiving Tank Operator's Note Reviewed: Yes Patient Seen and Examined: Yes Identifying Information: 66 yo MHM with hx liver transplant and past outpatient therapy with a psychiatrist in [place]. Chief Complaint: Reported HI and SI. Voice dplan to kill , chop up her body, put it in a suitcase or a vann, then hang himself to avoid mcc. Reaction to Hospitalization: Feels very comfortable here. Describes it as like a hotel. History of Present Illness Onset of Illness: Reports he was seen at [place] [facility] 14 years ago then saw a private psychiatrist 1x/month briefly, before his liver transplant. Has been very upset about marital discord in the context of 's alleged alcoholism and benzo addiction. She reportedly had been refusing treatment. Circumstances Leading to Admission: Called 211 then brought to ER on a PEER. Problem(s) Justifying Need for Admission: Voiced SI and HI. Other HPI: Reports is now in a rehab in [place] and therefore things are better. Describes sleep as great here but is was not too good at home x 1 week due to worry. Appetite: "I could eat a horse." Appetite was good at home. Denies weight change, "stable." Past Psychiatric History Past Diagnosis(es)- if any: Unknown. Past Precipitating Factors- if any: Liver failure. - Include inpatient and outpatient treatment Treatment History: [place] ER visit 14 years ago. Saw a private psychiatrist 14 years ago (no meds). History of Suicide Attempts or Gestures Denies but crisis note indicates that patient considered hanging himself 13 years ago. Substance Abuse History: Denies tobacco, alcohol and drugs use now. Past MJ but clean since 08/13/16. Allergies: Coded Allergies: No Known Allergies (12/15/16) Home Med List: Lantus ASA 81 mg daily Klonopin 0.5 mg bid Losartan 50 mg daily MVI 1 daily Pantoprazole 40 mg daily Crestor 10 mg daily Tacrolimus 1 mg po bid ? Fish oil 1,050 mg bid Past hydroxyzine 25 mg Past sertraline 100 mg - Include any medical condition(s) that may - impact the patient's recovery/remission Past History Medical History Neurological: NONE EENT: NONE Cardiovascular: hypertension, hyperlipidemia Respiratory: NONE Gastrointestinal: HEP C ? GERD Hepatic: hepatitis C, LIVER TRANSPLANT Renal: NONE Musculoskeletal: LEFT SHOULDER ARTHRITIS Psychiatric: anxiety, depression Endocrine: diabetes Blood Disorders: NONE Cancer(s): NONE DEVOPS/Reproductive: NONE History of MRSA: No History of VRE: No History of CDIFF: No Isolation History: Standard Surgical History Surgical History: LIVER TRANSPLANT Psychiatric Family/Social Hx Family History Psychiatric Illness: None. Substance Use: Son: alcohol and drug abuse. Suicides: None. Social History Living Situation: Lives with . Significant Relationships (family/friends): Has son, 39, and daughter, 37 with . Has 42 yo daughter (no contact with her) from another relationship. Education: 8th grade education. Vocation/Occupation: On [employer] x 14 years since liver transplant. 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 Legal: No hx arrests. Other Social History: Born in [place]. Healthly Behaviors Screening Tobacco Screening Tobacco Use from ED Docu: Never used - If tobacco counseling indicated - the following topics are required. - #1 Recognizing dangerous situations. - #2 Coping Skills. - #3 Basic information about quitting. Status of Tobacco Cessation Counseling: N/A B/C NO TOB USE Cessation Med Status: No Tobacco Use last 30d Alcohol Screening - ETOH screen POS if BAL >=80 or Audit-C>= M4/F3 Audit-C Score from Diag Assess: 0 Alcohol Use Screening Results: Neg per Audit C &/or BAL - If ETOH counseling indicated - the following topics are required. - #1 Express concern about the patient's - drinking at unhealthy levels, include informing - of national norms for moderate drinking: - men <= 14 drinks/week, max 4 drinks/occasion - women <= 7 drinks/week, max 3 drinks/occasion - #2 Providing feedback, including linking alcohol to - negative physical effects (liver injury, hypertension) - negative emotional effects (relationship problems and - depression) - negative occupational consequences (reduced work - performance) - #3 Advising the patient to abstain from alcohol or - to drink below national norms for moderate drinking - (as listed above). Status of ETOH Use Counseling: N/A B/C NO ETOH Use Metabolic Screening - Screen if on a Neuroleptic Medication - Metabolic screening should include: - Blood Pressure, BMI, Glucose or Hgb A1c, & a - Lipid profile from within the past 365 days. Metabolic Screening ([x]) Not Applicable, patient not on a neuroleptic. OR () Patient on a neuroleptic(s) . Enter below results for Glucose or Hemoglobin A1C, and lipid panel if obtained during the last 365 days. BMI: 27.900 Blood Pressure: 131/67 Laboratory Results (If applicable): Exam and Plan Mental Status Examination Ambulation Status: Ambulatory. Appearance: Bearded, dressed in T-shirt and camouflage pants. Attitude towards examiner: Calm, polite and cooperative. Psychomotor activity: No psychomotor agitation or retardation. Behavior: WNL. Quality of speech: Speech normal in volume, rate and tone. Affect: Calm and euthymic. Mood: Feels great. Reports mood is much better now than when he came in. Had felt like a prisoner in the ER. Finds [facility] like a hotel. Sad 0/10. Anxiety 0/10. Denies feeling hopeless, helpless, worthless or guilty. Suicidal Ideation: Denies SI, active and passive. Regarding SI, states "never." Homicidal Ideation: Denies HI in general. Denies HI toward . Claims his comments prior to admission were a manipulation to get his into treatment. Hallucinations: Denies AH and VH. Paranoid/Delusional Material: Denies PI and magical musa. Difficulties with thought organization: None. Thinking is clear, logical and goal-directed. There is no FOI, ESSIE, tangentiality or circumstantiality. Insight: Fair. Was poor. Judgment: Fair now. Was very poor when made HI/SI comments. Orientation: Ox3. Cognition: Grossly WNL. Memory Function: Grossly WNL. Estimate of intellectual functioning: Average. Assets/Strengths Patient Identified Assets/Strengths: "That I know how to do everything. I'm very handy." Impression/Plan Impression and Plan: 66 yo MWM here after calling 211 voicing HI toward and SI. Claims he was frustrated with marital discord and 's avoidance of treatment for her alleged alcohol/benzo problem. He describes being relieved now that is in treatment (rehab). - Include all active medical diagnosis that require tx DSM 5 Diagnosis(es): Unspecified mood disorder. - Initial Tx Plan for Active Psych & Medical Conditions Treatment Plan: Monitor on the unit for safety and mood disorder. Continue Klonopin as written. No changes in psychiatric medication are clearly indicated at this time. Additional information is needed from collaterals. Patient was initially resistant to the idea of therapy after discharge but now agrees to it. If patient remains stable for an additional 24-48 hours and if there is a successful family meeting, anticipate discharge to home with referral to IOP. - Factors that would help patient function - in a less restrictive setting. Factors: Not having SI or HI.
[2016-12-19 16:13] VITALS: BP 131/67
[2016-12-19 19:52] VITALS: BP 142/75
[2016-12-20 07:54] VITALS: BP 140/71
--- NOTE | 2016-12-20 08:23 | PN- Diabetes ---
Assessment/Plan Assessment: Patient feels better. He states he wants to go home. His blood sugar was 211 this morning. Review of the data that his sugars were somewhat high yesterday also. He is on a single dose of Levemir 40 units daily. Plan: Suggest that we can add some metformin 500 mg twice a day to his regimen. Patient's renal function is normal. There is no drug interaction between Tacrolimus and metformin except for the fact that tacrolimis may decreased kidney function. The patient is on tacrolimus because of his liver transplant. Subjective Subjective: Feels okay Review of Systems Constitutional: Denies: chills, fever. Cardiovascular: Denies: chest pain. Respiratory: Denies: short of breath. Gastrointestinal: Denies: bloating, nausea, vomiting. Skin: Reports: no symptoms. Objective Last 24 Hrs of Vital Signs/I&O Vital Signs Date Time Temp Pulse Resp B/P B/P Pulse O2 O2 Flow FiO2 Mean Ox Delivery Rate 05/ 0754 97.9 71 140/71 05/1949 97.3 69 142/75 05/09 1613 83 131/67 05/09 1240 67 144/72 05/09 0838 69 129/76 Vital Signs Date Time Temp Pulse Resp B/P B/P Pulse O2 O2 Flow FiO2 Mean Ox Delivery Rate 05/10 0754 97.9 71 140/71 05/1949 97.3 69 142/75 05/09 1613 83 131/67 05/09 1240 67 144/72 05/09 0838 69 129/76 Physical Exam General Appearance: alert, awake, comfortable Head: normal appearance Neck: normal inspection Respiratory: normal breath sounds Abdomen: normal bowel sounds, soft Extremities: normal inspection
[2016-12-20 12:42] VITALS: BP 124/68
[2016-12-20 16:31] VITALS: BP 137/65
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
--- NOTE | 2016-12-20 19:35 | CP SOUTH PROGRESS NOTE PSYCH ---
Psych (Inpt) Progress Note Progress Note Include the following elements, when applicable: Involvement in the active treatment of the patient with behavioral observations of the patient and the patient's response to the treatment. Review of the ongoing treatment process in the context of the treatment plan. Indication of how multi-disciplinary staff members are carrying out the treatment plan. Plans for future interventions and recommendations for revision of the treatment plan. Liaison with other physicians/providers. Progress Note: PSYCHIATRIST NOTE, 12/20/2016: I discussed this patient's progress to date, current mental status, treatment and discharge plans with staff team today in the daily morning ITTM and also met with him again myself in individual session. He presents as much improved in affect, denying suicidality, expressing continuing concern for his 's recovery from alcoholism and that her current treatment at [facility] will help her significantly on that journey. He is O.K. with the halving of daily Klonopin dose from 0.5mg 2x/day to only once at night, as well as with my recommendation that he discontinue the HS dose in the near future; I pointed out to him that the effect on the body of alcohol and benzodiazepines is similar and that having a bottle of Klonopin lying around the house would be like leaving an open bottle of alcohol out on the table; I also recommended he tell his that as she is discontinuing her use of alcohol he will be stopping the Klonopin going forward, recognizing it is also an addictive substance. Patient had told me that he was once prescribed Zoloft, 100mg/day but discontinued it due to severely dry mouth. At present, he does not appear to be endogenously/ clinically depressed though I would recommend continuing evaluation/monitoring for possible emergency of persisting neurovegetative symptoms following discharge, during f/u in the [facility] and subsequently in further treatment in [facility] or elsewhere.
[2016-12-20 20:02] VITALS: BP 128/60
[2016-12-21 08:23] VITALS: BP 118/66
[2016-12-21 12:24] VITALS: BP 121/64
--- NOTE | 2016-12-21 13:11 | SOCIAL WORKER PROG NOTE PSYCH ---
Social Work Progress Note Progress Note GH OP intake tomorrow morning at 8:15 am at [address] [facility] Med appt with Dr. Proctor 12/28/16 at 1pm
[2016-12-21] MEDS ORDERED: KLONOPIN0.5 M1 PO (14:57)
[2016-12-21] MEDS ORDERED: LEVEMIR100 UNIT/1 SC (14:57)
--- NOTE | 2016-12-21 15:46 | CP SOUTH PROGRESS NOTE PSYCH ---
Psych (Inpt) Progress Note Progress Note Include the following elements, when applicable: Involvement in the active treatment of the patient with behavioral observations of the patient and the patient's response to the treatment. Review of the ongoing treatment process in the context of the treatment plan. Indication of how multi-disciplinary staff members are carrying out the treatment plan. Plans for future interventions and recommendations for revision of the treatment plan. Liaison with other physicians/providers. Progress Note: PSYCHIATRIST NOTE (DISCHARGE), 12/21/2016: I have discussed this patient's progress to date, current mental status, treatment and discharge plans with staff team today in the daily morning ITTM and also met with him again myself in individual session prior to discharging him to follow-up in [facility]; the plan had been to refer him to [facility] his promise that he would discontinue use of Klonopin completely upon the completion of discharge prescription of two weeks supply. However, the co-pay ( $40.00/visit) for IOP is beyond his means, and he has instead been referred to OPS intake tomorrow, 12/22/2016, at 8:30am with initial medication visit/re- evaluation Dr. Jesus Proctor on 12/28/2016 at 1pm. Patient's spouse will be in residential rehab at [facility] for the next 3 weeks; I have urged that he recommend IOP attendance to her, possibly with [facility] since the couple reside in [place], [place]. I also advised patient to begin attending Al-Anon meetings in his local area; if patient appears to need additional support the idea of IOP referral might be revisited and some sort of payment plan worked out for the substantial co-pays for every session. Patient was very happy to be going home today rather than tomorrow, bright in affect, cheerful, smiling, euthymic, future-oriented, showing no evidence of current suicidal or homicidal ideation, plans, intent or impulses and well aware of his safety plan should he ever in future come to believe he is at acute risk to self-harm or to harm others. Patient will be making a follow-up appointment with endocrinologists, Drs. Dumont and Timothy, for management of his diabetes/adjustment of diabetic medications; Dr. Dumont added Metformin during the current admission. I have called into the [place] outpatient [facility] pharmacy on day of discharge, 12/21/2016: Klonopin, 0.5mg: i tablet HS PRN DFA (maximum of 0.5mg/night); #14 with no refill (patient does not smoke tobacco or drink alcohol) also: Metformin, 500mg 2x/day; 30-day supply called in per Dr. Dumont (diabetes/glucose management) Levemir insulin subcutaneous injection, 40mg HS; 30-day supply called in per Dr. Dumont (diabetes) patient has adequate supply at home to continue taking: tacrolimus, 1mg 2x/day (post-liver transplantation) Cozaar, 50mg daily (hypertension) Aspirin, 81mg daily (heart health) Lipitor, 80mg daily (lipid management) Prilosec, 20mg daily (acid reflux) patient will also take OTC: [place]-3, 1,050mg 2x/day (heart health) melatonin, 5mg HS PRN DFA multivitamin, i tablet daily (vitamin supplement)
--- NOTE | 2016-12-21 15:58 | DISCHARGE SUMMARY REPORT-PSYCH ---
Visit Information Visit Dates/Diagnosis' Admission Date: 12/18/16 Discharge Date: 12/21/16 Reason for Admission: "My needs help!" Psy Discharge Primary Diag: Adjustment Disorder with anxious mood R/O Unspec. Mood Disorder Psy Discharge Secondary Diag: R/O hx of Cannabis Use Disorder(urine tox. neg.) Diabetes Type II(insulin- dependent at this time) Hypertension Hyperlipidemia S/ P previous liver transplant (Hepatitis C) R/O hx of Cannabis Use Disorder Diabetes Type II(insulin dependent at this time) Hypertension Hyperlipidemia Hospital Course Significant Lab Findings: glucose = 115; BUN = 26; sodium = 136; AST = 98, 37, ALT = 85, 69; LDL = 48; hepatitis C antibody--reactive; RBC = 4.36, hgb = 13.6, hct = 40.1; MARLEY = less than 10.0; urine for drugs of abuse--negative (for complete details of all normal range laboratory data from this admission, see the electronic medical record) Course Complications: none Consultations: patient was seen for an admission medical H&P by Guzman Sanchez M.D., and followed medically during this admission by the hospitalist staff/[facility] medical attending physicians Allergies: Coded Allergies: No Known Allergies (12/15/16) Hospital Course/TX Response: (see also, all initial/admission assessments and daily M.D./REGULATORY AFFAIRS STRATEGY SPECIALIST and EMBEDDED FIRMWARE DEVELOPER progress notes from this admission in the electronic medical record) Patient had been experiencing increasing marital discord in the context of his 's allegedly escalating alcohol and benzodiazepine abuse; he had thought by calling the police they would come and see that it was his who needed help. Though patient was himself brought to the E.D. and admitted to [facility], he found out that spouse had in fact been admitted to [facility] for residential rehab which made him very happy. Patient had himself been taking Klonopin, 0.5mg 2x/day for anxiety which he said was associated with worry about his and her condition. Patient agreed to reduce Klonopin dose by 50% to just 0.5mg HS and to plan to discontinue the latter once his discharge prescription was used up. Ely Colon LCSW, held a family meeting with patient and his daughter; the latter was very supportive but extremely worried over mother's substance abuse (on the rise for 5 years) and how it is destroying both of her parents. They are both hopeful that mother will come out of [place] much better and continue in treatment and with A.A.; Ms. Colon recommended Al- Anon to both patient and daughter. By discharge, it was clear that much of patient's upset had been situational but that it could then re-emerge if things do not go well after 's completion of rehab. We wanted him to f/u in [facility] but the co-pays for each treatment session were beyond patient's means; he did agree to continue in [facility] and seek couple's therapy once his spouse returns home. Discharge HBIPS - Tobacco Use Treatment Offered Post DC Medications Offered: NA-No Tob Use >30 days Post DC Tobacco Treatment Plan: NA-No Tobacco use >30days - EtOH/Drug Use D/O Treatment Offered Post DC Medications Offered: NA-No EtOH/Drug Use D/O Post DC EtOH/SubAbuse TX Plan: NA-No EtOH/Drug Use D/O Metabolic Screening - Screen if on a Neuroleptic Medication - Metabolic screening should include: - Blood Pressure, BMI, Glucose or Hgb A1c, & a - Lipid profile from within the past 365 days. Metabolic Screening ([x]) Not Applicable, patient not on a neuroleptic. OR () Patient on a neuroleptic(s) . Enter below results for Glucose or Hemoglobin A1C, and lipid panel if obtained during the last 365 days. BMI: 27.900 Blood Pressure: 121/64 Laboratory Results (If applicable): Discharge Instructions General Discharge Information Discharge Medications: Discharge Medications (dose, route, frequency, indications): I called into the [place] outpatient commercial pharmacy on day of discharge, 06/2017: Klonopin, 0.5mg: i tab HS PRN DFA (maximum of 0.5mg/night); #14 with no refill (this should be discontinued after patient finishes the above prescription) (patient does not smoke tobacco or drink alcohol) also the following was called in by Jocelyne Dumont M.D.: Metformin, 500mg 2x/day, for a 30-day supply (for diabetes/glucose management) Levemir insulin subcutaneous injection, 40mg HS, for a 30-day supply (for diabetes) patient said he has an adequate supply at home to continue taking: tacrolimus, 1mg 2x/day (post-liver transplantation) Cozaar, 50mg daily (for hypertension) asprin, 81mg daily (for heart health) Lipitor, 80mg daily (for lipid management) Prilosec, 20mg daily (for acid reflux) patient will also take OTC: omega-3, 1,050mg 2x/day (for heart health) melatonin, 5mg HS PRN DFA multivitamin, i tab daily (vitamin supplement) Multiple Neuroleptics: ([x]) Not Applicable OR Document below three failed attempts at monotherapy, or a plan to taper to monotherapy, or augmentation of Clozapine. () Patient's Diet: diabetic/consistent carb Patient's Activity: without restrictions DC Disposition: to home ( currently in residential rehab at [place], [place].) Recommendations: Patient should discontinue taking Klonopin upon completion of discharge prescription; I have counseled him with regard to not having ANY benzodiazepines in the house when spouse returns from rehab, that this is as important as having no alcohol at home. I would advise continued monitoring of patient for possible emergence of neurovegetative depression (has no N-V sx now). Referred To: [facility] was [facility] where he has an intake appointment scheduled on 12/22/2016 at 8:30am; he also has a medication evaluation on 12/28/2016 at 1pm with Jesus Proctor M.D. He has been strongly urged to attend Al-Anon meetings with his daughter. Patient will follow up with endocrinologists, Drs. Dumont and Jolynn, for management of his diabetes and wished to call for an appointment with them himself. Copies To: RODDY DOBBS,JOCELYNE Aviles; JOLYNN DOBBS,NATHAN; JESUS PROCTOR MD
== END 2016-12-21 16:25 | DRG 882 ==
LOC: ERH 14:20 → CP SOUTH 12-18 14:41 → ERHI 12-18 14:41 → CP SOUTH 12-18 16:07 → ENRESERV 12-18 23:59 → CP SOUTH 12-21 16:25
PROVIDERS: Physician Assistant; ADMIT Psychiatry & Neurology Addiction Medicine
DX: F43.20 Adjustment disorder, unspecified (principal); Z94.4 Liver transplant status; I10 Essential (primary) hypertension; E11.9 Type 2 diabetes mellitus without complications; E78.5 Hyperlipidemia, unspecified
CPT/HCPCS: 36415; 80307; G0463; G0480; J0696; J1815; J3490